=== PATIENT | female | born 1985 | race American Indian/Alaskan Native ===

== ENCOUNTER 2017-08-31 21:02 | Emergency (ER) | payer SELFPAY ==
[2017-08-31 21:32] VITALS: BP 127/53
[2017-08-31] MEDS ORDERED: TETRACAINE 0.5% ONE (23:32)
[2017-08-31] MEDS ORDERED: FUL-GLO OP ONE ×2 (23:32→23:35)
[2017-08-31] MEDS ORDERED: TETRACAINE 0.5% OU ONE (23:36)
--- NOTE | 2017-08-31 23:39 | Emergency Department Report ---
ED Eye Problem HPI - General Chief complaint: Eye Problems Stated complaint: RIGHT EYE PAIN Time Seen by Provider: 08/31/17 23:33 Source: patient Mode of arrival: Ambulatory Limitations: No Limitations - History of Present Illness Initial comments: 31-year-old -[place] female comes to the emergency room reporting that she's had the right eye pain. Patient reports that she had new contacts about a month ago and accidentally slipped and then and now is having pain. She denies any trauma to her eye but reports that his discomfort for her to open secondary to pain and tearing. Patient reports that she wears disposable contacts for 2 weeks. She has no past medical history currently takes no medications on a daily basis and has no known drug allergies. chief complaint: eye pain (right) -: This morning Onset Description: gradual Location: right eye If Injury: none Eye Symptoms: burning, pain, photophobia Severity: moderate If Pain, Quality: sharp, aching, throbbing Consistency: constant Context: contact lens use Associated Symptoms: headache - Related Data Previous Rx's Medication Instructions Recorded Last Taken Type Erythromycin [Erythromycin Ophth 1 applic OD QID #1 tube 09/01/17 Unknown Rx Oint] Ibuprofen [Motrin 800 MG tab] 800 mg PO Q8HR PRN #30 tablet 09/01/17 Unknown Rx oxyCODONE /ACETAMINOPHEN [Percocet 1 tab PO Q6HR PRN #12 tablet 09/01/17 Unknown Rx 5/325 mg] Allergies Allergy/AdvReac Type Severity Reaction Status Date / Time No Known Allergies Allergy Verified 08/31/17 23:41 ED Review of Systems ROS: Stated complaint: RIGHT EYE PAIN Other details as noted in HPI Comment: All other systems reviewed and negative Eyes: eye pain, eye discharge (clear), vision change Neurological: headache ED Past Medical Hx - Past Medical History Previous Medical History?: No - Surgical History Past Surgical History?: No - Social History Smoking Status: Never Smoker Substance Use Type: None - Medications Home Medications: Home Medications Medication Instructions Recorded Confirmed Last Taken Type Erythromycin [Erythromycin Ophth 1 applic OD QID #1 tube 09/01/17 Unknown Rx Oint] Ibuprofen [Motrin 800 MG tab] 800 mg PO Q8HR PRN #30 tablet 09/01/17 Unknown Rx oxyCODONE /ACETAMINOPHEN [Percocet 1 tab PO Q6HR PRN #12 tablet 09/01/17 Unknown Rx 5/325 mg] ED Physical Exam - General Limitations: No Limitations General appearance: alert, in no apparent distress - Head Head exam: Present: atraumatic, normocephalic - Eye Pupils: Present: other (flourscien exam shows uptake to the cornea) - Expanded Eye Exam Expanded Sclera/Conjunctival: Normal Inspection: Bilateral ED Course Vital Signs 08/31/17 08/31/17 21:26 22:31 Temperature 98.6 F 98.6 F Pulse Rate 82 83 Respiratory 18 18 Rate Blood Pressure 127/53 127/53 O2 Sat by Pulse 99 98 Oximetry ED Medical Decision Making - Medical Decision Making Patient has been evaluated by this provider fast track. Fluorescein exam was performed. I discussed the patient it appears that she has a corneal abrasion and that I will need to place her on antibiotics and a referral to supervisor pressing department to be seen the next 24-48 hours. I discussed the patient I'll place her on pain medication as well. Patient verbalized understanding. Critical care attestation.: If time is entered above; I have spent that time in minutes in the direct care of this critically ill patient, excluding procedure time. ED Disposition Clinical Impression: Corneal abrasion, right Qualifiers: Encounter type: initial encounter Qualified Code(s): S05.01XA - Injury of conjunctiva and corneal abrasion without foreign body, right eye, initial encounter Disposition: TO HOME OR SELFCARE Is pt being admited?: No Does the pt Need Aspirin: No Condition: Stable Instructions: Corneal Abrasion (ED) Additional Instructions: Please take pain medication as needed. Please use eye ointment to your eye as prescribed and follow-up with an supervisor pressing department in the next 24-48 hours. Prescriptions: Erythromycin [Erythromycin Ophth Oint] 1 applic OD QID #1 tube Ibuprofen [Motrin 800 MG tab] 800 mg PO Q8HR PRN #30 tablet PRN Reason: Pain oxyCODONE /ACETAMINOPHEN [Percocet 5/325 mg] 1 tab PO Q6HR PRN #12 tablet PRN Reason: Pain Referrals: FREDA SINGH MD [Primary Care Provider] - 3-5 Days ADONIS SIMPSON MD [Staff Physician] - 3-5 Days CISCO WISE MD [Staff Physician] - 3-5 Days FRANCISCO VASQUEZ MD [Staff Physician] - 3-5 Days MAURICIO HEARD MD [Staff Physician] - 3-5 Days Forms: Accompanied Note, Work/School Release Form(ED)
[2017-08-31] MEDS ORDERED: PERCOCET 5/325 PO ONE (23:57)
== END 2017-09-01 00:21 | disposition home or self-care (01) ==
LOC: ED 21:02
DX: S05.01XA Injury of conjunctiva and corneal abrasion without foreign body, right eye, initial encounter (principal); W19.XXXA Unspecified fall, initial encounter; Y93.89 Activity, other specified; Y92.89 Other specified places as the place of occurrence of the external cause; Y99.8 Other external cause status
CPT/HCPCS: 99282

== ENCOUNTER 2019-03-05 00:10 | Emergency (ER) | payer SELFPAY ==
[2019-03-05 01:39] LABS: Basophils # (Auto) 0.1 K/mm3 (0.0-0.1); Basophils % (Auto) 0.8 % (0.0-1.8); Eosinophils # (Auto) 0.1 K/mm3 (0.0-0.4); Eosinophils % (Auto) 1.3 % (0.0-4.3); Hematocrit 38.8 % (30.3-42.9); Hemoglobin 12.7 gm/dl (10.1-14.3); Lymphocytes # (Auto) 2.6 K/mm3 (1.2-5.4); Lymphocytes % (Auto) 41.3 % (13.4-35.0); Mean Corpuscular HGB Conc 33 % (30-34); Mean Corpuscular Volume 87 fl (79-97); Monocytes # (Auto) 0.3 K/mm3 (0.0-0.8); Monocytes % (Auto) 4.4 % (0.0-7.3); Platelet Count 207 K/mm3 (140-440); Red Blood Count 4.46 M/mm3 (3.65-5.03); Red Cell Distribution Width 14.1 % (13.2-15.2)
[2019-03-05 01:57] LABS: Alanine Aminotransferase 10 units/L (7-56); Albumin 4.5 g/dL (3.9-5); BUN/Creatinine Ratio 21; Blood Urea Nitrogen 17 mg/dL (7-17); Calcium 9.6 mg/dL (8.4-10.2); Hemolysis Index 10
[2019-03-05 02:09] LABS: Bacteria,Urine 1+ /HPF (Negative); Bilirubin,Urine NEG (Negative); Blood,Urine SM (Negative); Color,Urine Yellow (Yellow); Mucus,Urine 2+ /HPF; Protein,Urine <15 mg/dL mg/dL (Negative); Urobilinogen,Urine < 2.0 mg/dL (<2.0)
--- NOTE | 2019-03-05 02:32 | Emergency Department Report ---
ED General Adult HPI - General Chief complaint: Back Pain/Injury Stated complaint: SPINAL PAIN PAIN BOTH LEGS PAINFUL TO WALK Time Seen by Provider: 03/05/19 02:08 Source: patient, RN notes reviewed, old records reviewed Mode of arrival: Ambulatory Limitations: No Limitations - History of Present Illness Initial comments: This is a 33-year-old female. This patient is not known to this provider previously. The patient states that she is not . The patient presents to the ER with a complaint of nontraumatic lumbar back pain, that radiates a round the bilateral lateral thighs. The pain is burning, sharp, throbbing. There is no weakness. The pain increases with palpation and range of motion. It decreases with rest. No relief with [id number] medicines. The patient denies bladder or bowel retention and/or incontinence. The patient denies saddle anesthesia. The pain decreases with position. It increases with standing. Patient reports that she does a lot of heavy lifting for work, but does not recall any changes to this pattern. There is no recent trauma, chiropractic manipulation. No fevers. No abdominal pain. No back pain. No chest pain. -: Gradual, days(s) Location: back Radiation: extremity Quality: burning, aching Consistency: other Improves with: other Worsens with: other Associated Symptoms: other - Related Data Previous Rx's Medication Instructions Recorded Last Taken Type Erythromycin [Erythromycin Ophth 1 applic OD QID #1 tube 09/01/17 Unknown Rx Oint] Ibuprofen [Motrin 800 MG tab] 800 mg PO Q8HR PRN #30 tablet 09/01/17 Unknown Rx oxyCODONE /ACETAMINOPHEN [Percocet 1 tab PO Q6HR PRN #12 tablet 09/01/17 Unknown Rx 5/325 mg] Ibuprofen [Motrin] 600 mg PO Q6HR PRN #30 03/05/19 Unknown Rx oxyCODONE /ACETAMINOPHEN [Percocet 1 tab PO Q4HR PRN #15 tab 03/05/19 Unknown Rx 5/325] Allergies Allergy/AdvReac Type Severity Reaction Status Date / Time No Known Allergies Allergy Verified 08/31/17 23:41 ED Review of Systems ROS: Stated complaint: SPINAL PAIN PAIN BOTH LEGS PAINFUL TO WALK Other details as noted in HPI Constitutional: denies: fever Eyes: denies: eye discharge ENT: denies: congestion Respiratory: denies: wheezing Cardiovascular: denies: syncope Gastrointestinal: denies: abdominal pain, nausea, vomiting Genitourinary: denies: urgency, dysuria Musculoskeletal: back pain Neurological: paresthesias ED Past Medical Hx - Past Medical History Previous Medical History?: No - Surgical History Past Surgical History?: No - Social History Smoking Status: Never Smoker - Medications Home Medications: Home Medications Medication Instructions Recorded Confirmed Last Taken Type Erythromycin [Erythromycin Ophth 1 applic OD QID #1 tube 09/01/17 Unknown Rx Oint] Ibuprofen [Motrin 800 MG tab] 800 mg PO Q8HR PRN #30 tablet 09/01/17 Unknown Rx oxyCODONE /ACETAMINOPHEN [Percocet 1 tab PO Q6HR PRN #12 tablet 09/01/17 Unknown Rx 5/325 mg] Ibuprofen [Motrin] 600 mg PO Q6HR PRN #30 03/05/19 Unknown Rx oxyCODONE /ACETAMINOPHEN [Percocet 1 tab PO Q4HR PRN #15 tab 03/05/19 Unknown Rx 5/325] ED Physical Exam - General Limitations: No Limitations General appearance: alert, anxious, obese - Head Head exam: Present: atraumatic, normocephalic - Eye Eye exam: Present: normal appearance, EOMI. Absent: nystagmus - ENT ENT exam: Present: normal exam, normal orophraynx, mucous membranes moist, normal external ear exam - Neck Neck exam: Present: normal inspection, full ROM. Absent: tenderness, meningismus - Respiratory Respiratory exam: Present: normal lung sounds bilaterally. Absent: respiratory distress - Cardiovascular Cardiovascular Exam: Present: regular rate, normal rhythm, normal heart sounds. Absent: bradycardia, tachycardia, irregular rhythm, systolic murmur, diastolic murmur, rubs, gallop - GI/Abdominal GI/Abdominal exam: Present: soft. Absent: distended, tenderness, guarding, rebound, rigid, pulsatile mass - Extremities Exam Extremities exam: Present: normal inspection, full ROM, other (2+ pulses noted in the bilateral upper, lower extremities. There is no long bone tenderness. Musculoskeletal compartments are soft. The pelvis is stable.). Absent: pedal edema, calf tenderness - Back Exam Back exam: Present: normal inspection, full ROM. Absent: tenderness, CVA tenderness (R), CVA tenderness (L), paraspinal tenderness, vertebral tenderness - Neurological Exam Neurological exam: Present: alert, normal gait, reflexes normal (downgoing plantar reflexes bilaterally. Brisk quadriceps reflex noted in the bilateral lower extremities. There is no clonus. Sensation intact to light touch, pinch and proprioception in the bilateral lower extremities.), other (there is no facial droop. The tongue is midline. Extraocular movements are intact bilaterally. Patient speaking in full complete sentences. Shoulder shrug is intact bilaterally. Hearing is grossly intact bilaterally. Visual acuity intact to finger counting and color perception at a close distance. 5/5 strength 4 extremities. Sensation intact to light touch in 4 extremities.) - Psychiatric Psychiatric exam: Present: normal affect, normal mood - Skin Skin exam: Present: warm, dry, intact, normal color. Absent: rash ED Course Vital Signs 03/05/19 00:23 Temperature 98.3 F Pulse Rate 101 H Respiratory 18 Rate Blood Pressure 123/70 O2 Sat by Pulse 99 Oximetry ED Medical Decision Making - Lab Data Result diagrams: 03/05/19 00:41 03/05/19 00:41 Vital Signs 03/05/19 00:23 Temperature 98.3 F Pulse Rate 101 H Respiratory 18 Rate Blood Pressure 123/70 O2 Sat by Pulse 99 Oximetry Lab Results 03/05/19 03/05/19 03/05/19 Range/Units 00:41 00:41 01:04 WBC 6.3 (4.5-11.0) K/mm3 RBC 4.46 (3.65-5.03) M/mm3 Hgb 12.7 (10.1-14.3) gm/dl Hct 38.8 (30.3-42.9) % MCV 87 (79-97) fl MCH 29 (28-32) pg MCHC 33 (30-34) % RDW 14.1 (13.2-15.2) % Plt Count 207 (140-440) K/mm3 Lymph % (Auto) 41.3 H (13.4-35.0) % [place] % (Auto) 4.4 (0.0-7.3) % Eos % (Auto) 1.3 (0.0-4.3) % Baso % (Auto) 0.8 (0.0-1.8) % Lymph # 2.6 (1.2-5.4) K/mm3 [place] # 0.3 (0.0-0.8) K/mm3 Eos # 0.1 (0.0-0.4) K/mm3 Baso # 0.1 (0.0-0.1) K/mm3 Seg Neutrophils % 52.2 (40.0-70.0) % Seg Neutrophils # 3.3 (1.8-7.7) K/mm3 Sodium 141 (137-145) mmol/L Potassium 3.6 (3.6-5.0) mmol/L Chloride 102.7 (98-107) mmol/L Carbon Dioxide 24 (22-30) mmol/L Anion Gap 18 mmol/L BUN 17 (7-17) mg/dL Creatinine 0.8 (0.7-1.2) mg/dL Estimated GFR > 60 ml/min BUN/Creatinine Ratio 21 % Glucose 85 (65-100) mg/dL Calcium 9.6 (8.4-10.2) mg/dL Total Bilirubin 0.20 (0.1-1.2) mg/dL AST 19 (5-40) units/L ALT 10 (7-56) units/L Alkaline Phosphatase 62 (35-129) units/L Total Protein 7.6 (6.3-8.2) g/dL Albumin 4.5 (3.9-5) g/dL Albumin/Globulin Ratio 1.5 % Urine Color Yellow (Yellow) Urine Turbidity Clear (Clear) Urine pH 5.0 (5.0-7.0) Ur Specific [place] 1.033 H (1.003-1.030) Urine Protein <15 mg/dl (Negative) mg/dL Urine Glucose (UA) Neg (Negative) mg/dL Urine Ketones Tr (Negative) mg/dL Urine Blood Sm (Negative) Urine Nitrite Neg (Negative) Urine Bilirubin Neg (Negative) Urine Urobilinogen < 2.0 (<2.0) mg/dL Ur Leukocyte Esterase Tr (Negative) Urine WBC (Auto) 5.0 (0.0-6.0) /HPF Urine RBC (Auto) 3.0 (0.0-6.0) /HPF U Epithel Cells (Auto) 2.0 (0-13.0) /HPF Urine Bacteria (Auto) 1+ (Negative) /HPF Urine Mucus 2+ /HPF Urine HCG, Qual (Negative) 03/05/19 Range/Units 02:38 WBC (4.5-11.0) K/mm3 RBC (3.65-5.03) M/mm3 Hgb (10.1-14.3) gm/dl Hct (30.3-42.9) % MCV (79-97) fl MCH (28-32) pg MCHC (30-34) % RDW (13.2-15.2) % Plt Count (140-440) K/mm3 Lymph % (Auto) (13.4-35.0) % [place] % (Auto) (0.0-7.3) % Eos % (Auto) (0.0-4.3) % Baso % (Auto) (0.0-1.8) % Lymph # (1.2-5.4) K/mm3 [place] # (0.0-0.8) K/mm3 Eos # (0.0-0.4) K/mm3 Baso # (0.0-0.1) K/mm3 Seg Neutrophils % (40.0-70.0) % Seg Neutrophils # (1.8-7.7) K/mm3 Sodium (137-145) mmol/L Potassium (3.6-5.0) mmol/L Chloride (98-107) mmol/L Carbon Dioxide (22-30) mmol/L Anion Gap mmol/L BUN (7-17) mg/dL Creatinine (0.7-1.2) mg/dL Estimated GFR ml/min BUN/Creatinine Ratio % Glucose (65-100) mg/dL Calcium (8.4-10.2) mg/dL Total Bilirubin (0.1-1.2) mg/dL AST (5-40) units/L ALT (7-56) units/L Alkaline Phosphatase (35-129) units/L Total Protein (6.3-8.2) g/dL Albumin (3.9-5) g/dL Albumin/Globulin Ratio % Urine Color (Yellow) Urine Turbidity (Clear) Urine pH (5.0-7.0) Ur Specific [place] (1.003-1.030) Urine Protein (Negative) mg/dL Urine Glucose (UA) (Negative) mg/dL Urine Ketones (Negative) mg/dL Urine Blood (Negative) Urine Nitrite (Negative) Urine Bilirubin (Negative) Urine Urobilinogen (<2.0) mg/dL Ur Leukocyte Esterase (Negative) Urine WBC (Auto) (0.0-6.0) /HPF Urine RBC (Auto) (0.0-6.0) /HPF U Epithel Cells (Auto) (0-13.0) /HPF Urine Bacteria (Auto) (Negative) /HPF Urine Mucus /HPF Urine HCG, Qual Negative (Negative) - Medical Decision Making Differential diagnosis, including not limited to: Radicular back pain Assessment and plan: [age]-year-old female with probable radicular back pain. Tachycardia has resolved. She is able to walk. There is no pulsatile abdominal mass. Has appropriate strength, sensation and reflexes. At this point time, her exam is not consistent with acute cord compression or epidural compression syndrome. Her pain was treated. She was instructed that she'll need to follow-up with an outpatient primary care doctor, pain specialist, or spine specialists expediently. We discussed return precautions. Critical care attestation.: If time is entered above; I have spent that time in minutes in the direct care of this critically ill patient, excluding procedure time. ED Disposition Clinical Impression: Radicular pain Disposition: DC-01 TO HOME OR SELFCARE Is pt being admited?: No Does the pt Need Aspirin: No Condition: Stable Instructions: Lumbar Radiculopathy (ED) Additional Instructions: Rest, avoid heavy lifting, and strenuous physical activities. Take the pain medications as needed and/or directed. Recommend following up with an orthopedic spine physician, dedicated spine physician, or orthopedist within the next 3-5 days. Return to the emergency room right away with extremity weakness, urinary retention or incontinence, fecal retention or incontinence, numbness over the rectum, numbness over the genitals, worsening pain, abdominal pain, or new, worsened or different symptoms not present on the initial emergency room evaluation. Referrals: BETHANY MENDEZ MD [Staff Physician] - 3-5 Days (spine) [facility] [Provider Group] - 3-5 Days (orthopedics ) NICKI FARLEY MD [Staff Physician] - 3-5 Days (orthopedics) SRIRAM DAWSON MD [Staff Physician] - 3-5 Days (neurosurgeon) Forms: Work/School Release Form(ED)
[2019-03-05] MEDS ORDERED: KETOROLAC 30 MG/1 ML INJ IM ONE (02:48)
[2019-03-05] MEDS ORDERED: DEXAMETHASONE 4 MG TAB PO ONE (02:48)
[2019-03-05 02:49] LABS: HCG Qualitative,Urine Negative (Negative)
[2019-03-05 04:40] VITALS: BP 112/74
== END 2019-03-05 04:10 | disposition home or self-care (01) ==
LOC: ED 00:10
DX: M54.16 Radiculopathy, lumbar region (principal)
CPT/HCPCS: 36415; 80053; 81001; 81025; 85025; 96372; 99283; J1885; J8540

== ENCOUNTER 2019-06-29 22:37 | Emergency (ER) | payer BC ==
[2019-06-29 23:09] VITALS: BP 114/70
[2019-06-30 00:33] LABS: Basophils # (Auto) 0.1 K/mm3 (0.0-0.1); Basophils % (Auto) 0.5 % (0.0-1.8); Eosinophils % (Auto) 0.2 % (0.0-4.3); Hematocrit 39.2 % (30.3-42.9); Hemoglobin 13.1 gm/dl (10.1-14.3); Lymphocytes # (Auto) 1.2 K/mm3 (1.2-5.4); Lymphocytes % (Auto) 12.5 % (13.4-35.0); Mean Corpuscular HGB Conc 33 % (30-34); Mean Corpuscular Volume 87 fl (79-97); Monocytes # (Auto) 0.3 K/mm3 (0.0-0.8); Monocytes % (Auto) 3.2 % (0.0-7.3); Platelet Count 216 K/mm3 (140-440); Red Blood Count 4.52 M/mm3 (3.65-5.03); Red Cell Distribution Width 13.7 % (13.2-15.2)
[2019-06-30 00:39] LABS: Bacteria,Urine 1+ /HPF (Negative); Bilirubin,Urine NEG (Negative); Blood,Urine SM (Negative); Color,Urine Yellow (Yellow); Mucus,Urine FEW /HPF; Protein,Urine <15 mg/dL mg/dL (Negative); Urobilinogen,Urine < 2.0 mg/dL (<2.0)
[2019-06-30 01:02] LABS: Alanine Aminotransferase 14 units/L (7-56); Albumin 4.3 g/dL (3.9-5); BUN/Creatinine Ratio 15; Blood Urea Nitrogen 9 mg/dL (7-17); Calcium 9.8 mg/dL (8.4-10.2); Hemolysis Index 28
--- NOTE | 2019-06-30 03:11 | Emergency Department Report ---
ED Female HPI - General Chief complaint: Abdominal Pain Stated complaint: LOWER ABD PAIN Time Seen by Provider: 06/30/19 02:36 Source: patient Mode of arrival: Ambulatory Limitations: No Limitations - History of Present Illness Initial comments: This is a 33-year-old female presents the ED complaining of right-sided pelvic pain that initially started about 2 days ago. Patient states that she recently just got off the Depo-Provera last month. Patient states she had a 2-week long menstrual cycle on May 16, 2019. Patient states the pain is localized to her right pelvic region and was worse this morning. Patient states symptoms resolved now. Patient denies vaginal bleeding, dysuria, dyspareunia, fever, chills, nausea vomiting or diarrhea, vaginal discharge. MD Complaint: pelvic pain - Related Data Previous Rx's Medication Instructions Recorded Last Taken Type Erythromycin [Erythromycin Ophth 1 applic OD QID #1 tube 09/01/17 Unknown Rx Oint] Ibuprofen [Motrin 800 MG tab] 800 mg PO Q8HR PRN #30 tablet 09/01/17 Unknown Rx oxyCODONE /ACETAMINOPHEN [Percocet 1 tab PO Q6HR PRN #12 tablet 09/01/17 Unknown Rx 5/325 mg] Ibuprofen [Motrin] 600 mg PO Q6HR PRN #30 03/05/19 Unknown Rx oxyCODONE /ACETAMINOPHEN [Percocet 1 tab PO Q4HR PRN #15 tab 03/05/19 Unknown Rx 5/325] traMADoL [Ultram 50 MG tab] 50 mg PO Q6HR PRN #20 tablet 06/30/19 Unknown Rx Allergies Allergy/AdvReac Type Severity Reaction Status Date / Time No Known Allergies Allergy Verified 08/31/17 23:41 ED Review of Systems ROS: Stated complaint: LOWER ABD PAIN Other details as noted in HPI Comment: All other systems reviewed and negative ED Past Medical Hx - Past Medical History Previous Medical History?: No - Surgical History Past Surgical History?: No - Social History Smoking Status: Never Smoker Substance Use Type: None - Medications Home Medications: Home Medications Medication Instructions Recorded Confirmed Last Taken Type Erythromycin [Erythromycin Ophth 1 applic OD QID #1 tube 09/01/17 Unknown Rx Oint] Ibuprofen [Motrin 800 MG tab] 800 mg PO Q8HR PRN #30 tablet 09/01/17 Unknown Rx oxyCODONE /ACETAMINOPHEN [Percocet 1 tab PO Q6HR PRN #12 tablet 09/01/17 Unknown Rx 5/325 mg] Ibuprofen [Motrin] 600 mg PO Q6HR PRN #30 03/05/19 Unknown Rx oxyCODONE /ACETAMINOPHEN [Percocet 1 tab PO Q4HR PRN #15 tab 03/05/19 Unknown Rx 5/325] traMADoL [Ultram 50 MG tab] 50 mg PO Q6HR PRN #20 tablet 06/30/19 Unknown Rx ED Physical Exam - General Limitations: No Limitations General appearance: alert, in no apparent distress - Head Head exam: Present: atraumatic, normocephalic - Eye Eye exam: Present: normal appearance - ENT ENT exam: Present: mucous membranes moist - Neck Neck exam: Present: normal inspection - Respiratory Respiratory exam: Present: normal lung sounds bilaterally. Absent: respiratory distress - Cardiovascular Cardiovascular Exam: Present: regular rate, normal rhythm. Absent: systolic murmur, diastolic murmur, rubs, gallop - GI/Abdominal GI/Abdominal exam: Present: soft, normal bowel sounds. Absent: distended, tende rness, mass, bruit - Extremities Exam Extremities exam: Present: normal inspection, full ROM - Back Exam Back exam: Present: normal inspection - Neurological Exam Neurological exam: Present: alert, oriented X3 - Psychiatric Psychiatric exam: Present: normal affect, normal mood - Skin Skin exam: Present: warm, dry, intact, normal color. Absent: rash ED Course Vital Signs 06/29/19 23:04 Temperature 98.2 F Pulse Rate 103 H Respiratory 20 Rate Blood Pressure 114/70 O2 Sat by Pulse 99 Oximetry ED Medical Decision Making - Lab Data Result diagrams: 06/29/19 23:59 06/29/19 23:59 Laboratory Last Values WBC 9.7 K/mm3 (4.5-11.0) 06/29/19 23:59 RBC 4.52 M/mm3 (3.65-5.03) 06/29/19 23:59 Hgb 13.1 gm/dl (10.1-14.3) 06/29/19 23:59 Hct 39.2 % (30.3-42.9) 06/29/19 23:59 MCV 87 fl (79-97) 06/29/19 23:59 MCH 29 pg (28-32) 06/29/19 23:59 MCHC 33 % (30-34) 06/29/19 23:59 RDW 13.7 % (13.2-15.2) 06/29/19 23:59 Plt Count 216 K/mm3 (140-440) 06/29/19 23:59 Lymph % (Auto) 12.5 % (13.4-35.0) L 06/29/19 23:59 [place] % (Auto) 3.2 % (0.0-7.3) 06/29/19 23:59 Eos % (Auto) 0.2 % (0.0-4.3) 06/29/19 23:59 Baso % (Auto) 0.5 % (0.0-1.8) 06/29/19 23:59 Lymph # 1.2 K/mm3 (1.2-5.4) 06/29/19 23:59 [place] # 0.3 K/mm3 (0.0-0.8) 06/29/19 23:59 Eos # 0.0 K/mm3 (0.0-0.4) 06/29/19 23:59 Baso # 0.1 K/mm3 (0.0-0.1) 06/29/19 23:59 Seg Neutrophils % 83.6 % (40.0-70.0) H 06/29/19 23:59 Seg Neutrophils # 8.1 K/mm3 (1.8-7.7) H 06/29/19 23:59 Sodium 141 mmol/L (137-145) 06/29/19 23:59 Potassium 4.0 mmol/L (3.6-5.0) 06/29/19 23:59 Chloride 103.8 mmol/L (98-107) 06/29/19 23:59 Carbon Dioxide 23 mmol/L (22-30) 06/29/19 23:59 Anion Gap 18 mmol/L 06/29/19 23:59 BUN 9 mg/dL (7-17) 06/29/19 23:59 Creatinine 0.6 mg/dL (0.7-1.2) L 06/29/19 23:59 Estimated GFR > 60 ml/min 06/29/19 23:59 BUN/Creatinine Ratio 15 % 06/29/19 23:59 Glucose 126 mg/dL (65-100) H 06/29/19 23:59 Calcium 9.8 mg/dL (8.4-10.2) 06/29/19 23:59 Total Bilirubin < 0.20 mg/dL (0.1-1.2) 06/29/19 23:59 AST 22 units/L (5-40) 06/29/19 23:59 ALT 14 units/L (7-56) 06/29/19 23:59 Alkaline Phosphatase 79 units/L (35-129) 06/29/19 23:59 Total Protein 7.2 g/dL (6.3-8.2) 06/29/19 23:59 Albumin 4.3 g/dL (3.9-5) 06/29/19 23:59 Albumin/Globulin Ratio 1.5 % 06/29/19 23:59 HCG, Qual Negative (Negative) 06/29/19 23:59 Urine Color Yellow (Yellow) 06/29/19 Unknown Urine Turbidity Clear (Clear) 06/29/19 Unknown Urine pH 5.0 (5.0-7.0) 06/29/19 Unknown Ur Specific [place] 1.016 (1.003-1.030) 06/29/19 Unknown Urine Protein <15 mg/dl mg/dL (Negative) 06/29/19 Unknown Urine Glucose (UA) Neg mg/dL (Negative) 06/29/19 Unknown Urine Ketones Neg mg/dL (Negative) 06/29/19 Unknown Urine Blood Sm (Negative) 06/29/19 Unknown Urine Nitrite Neg (Negative) 06/29/19 Unknown Urine Bilirubin Neg (Negative) 06/29/19 Unknown Urine Urobilinogen < 2.0 mg/dL (<2.0) 06/29/19 Unknown Ur Leukocyte Esterase Neg (Negative) 06/29/19 Unknown Urine WBC (Auto) 5.0 /HPF (0.0-6.0) 06/29/19 Unknown Urine RBC (Auto) 2.0 /HPF (0.0-6.0) 06/29/19 Unknown U Epithel Cells (Auto) 1.0 /HPF (0-13.0) 06/29/19 Unknown Urine Bacteria (Auto) 1+ /HPF (Negative) 06/29/19 Unknown Urine Mucus Few /HPF 06/29/19 Unknown - Medical Decision Making This 33-year-old female presents with pelvic pain most likely secondary to a ruptured ovarian cyst. Discussed with patient she needed a [employer]PERATOR referral. Discussed medication to take for pain every 6-8 hours. Discussed with patient to call [facility]U[employer]LE BOARD OPERATOR and follow-up with SHUFFLE BOARD OPERATOR in 2 to 3 days. Vital signs are normal patient is in no acute distress. Discussed all lab findings with the patient Critical care attestation.: If time is entered above; I have spent that time in minutes in the direct care of this critically ill patient, excluding procedure time. ED Disposition Clinical Impression: Pelvic pain, Ovarian cyst Disposition: TO HOME OR SELFCARE Is pt being admited?: No Does the pt Need Aspirin: No Condition: Stable Instructions: Abdominal Pain (ED), Ovarian Cyst (ED) Additional Instructions: Make sure to follow up with the primary care physician as discussed. Take all your medications as you've been prescribed. If you have any worsening symptoms or develop new symptoms please return to ED immediately. Prescriptions: traMADoL [Ultram 50 MG tab] 50 mg PO Q6HR PRN #20 tablet PRN Reason: Pain Referrals: DEA SOSA MD [Primary Care Provider] - 3-5 Days [facility] [Provider Group] - 3-5 Days [facility] [Provider Group] - 3-5 Days Forms: Accompanied Note, Work/School Release Form(ED) Time of Disposition: 03:11
== END 2019-06-30 03:35 | disposition home or self-care (01) ==
LOC: ED 22:37
DX: N83.209 Unspecified ovarian cyst, unspecified side (principal)
CPT/HCPCS: 36415; 80053; 81001; 84703; 85025; 99283